=== PATIENT | female | born 1940 | race Caucasian/White ===

== ENCOUNTER 2018-05-23 19:21 | Observation (INO) | payer OTHER ==
[2018-05-23] MEDS ORDERED: Sodium Chloride 0.9% 1,000 ML IV STA (19:47)
[2018-05-23] MEDS ORDERED: Morphine 4 mg/ml ISec IVP STA (19:47)
[2018-05-23 20:31] LABS: URINE BILIRUBIN NEGATIVE (NEGATIVE); URINE BLOOD MODERATE (NEGATIVE); URINE GLUCOSE (UA) NEGATIVE (NEGATIVE); URINE LEUKOCYTE ESTERASE SMALL Leu/uL (NEGATIVE); URINE PROTEIN NEGATIVE mg/dL (<30 mg/dL); URINE UROBILINOGEN 0.2 E.U./dL (<1 E.U./dL); VENOUS BLOOD GAS BASE EXCESS 2.8 mmol/L (0.0-2.0); VENOUS BLOOD GAS PO2 52 mm/Hg (30-55); VENOUS BLOOD PH 7.36 (7.32-7.43)
[2018-05-23 20:32] LABS: URINE APPEARANCE SL CLOUDY (CLEAR); URINE COLOR YELLOW (YELLOW)
[2018-05-23 20:46] LABS: URINE BACTERIA FEW (NEG)
[2018-05-23 20:51] LABS: BASO # 0.03 K/mm3 (0.0-2.0); BASO % 0.2 % (0.0-3.0); EOS # 0.1 (0.0-0.7); EOS % 0.6 % (1.5-5.0); GRAN # 11.84 (1.4-6.5); GRAN % 73.9 % (50.0-68.0); LYMPH # 2.4 (1.2-3.4); LYMPH % 15.2 % (22.0-35.0); MEAN CELL VOLUME 89.6 fl (80.0-105.0); MEAN CORPUSCULAR HEMOGLOBIN 30.2 pg (25.0-35.0); MEAN CORPUSCULAR HGB CONC 33.7 g/dl (31.0-37.0); MEAN PLATELET VOLUME 11.4 fl (7.0-11.0); MONO # 1.6 (0.1-0.6); MONO % 10.1 % (1.0-6.0); RBC 4.63 10^6/uL (3.5-6.1)
[2018-05-23] MEDS ORDERED: HYDROmorphone 0.5 mg/0.5 ml ISec IVP STA (21:18)
[2018-05-23] MEDS ORDERED: HYDROmorphone 0.5 mg/0.5 ml ISec ONE (21:28)
[2018-05-23 22:17] LABS: ALB/GLOB RATIO 1.2 (1.1-1.8); ALBUMIN 3.6 g/dL (3.0-4.8); ALT/SGPT 48 U/L (7-56); AMYLASE 66 U/L (35-125); AST/SGOT 113 U/L (14-36); BLOOD UREA NITROGEN 18 mg/dL (7-21); CALCIUM 7.8 mg/dL (8.4-10.5); GFR AFRICAN-AMERICAN > 60; GFR NON-AFRICAN AMERICAN > 60; LIPASE 233 U/L (23-300)
[2018-05-23 22:28] LABS: TROPONIN I < 0.01 ng/mL
[2018-05-23 22:31] LABS: INR 1.03 (0.93-1.08); PARTIAL THROMBOPLASTIN TIME 23.8 Seconds (25.1-36.5); PROTHROMBIN TIME 11.7 SECONDS (9.4-12.5)
--- NOTE | 2018-05-24 01:01 | ED PDOC ---
Arrival/HPI - General Chief Complaint: Abdominal Pain Time Seen by Provider: 05/23/18 19:41 - History of Present Illness Narrative History of Present Illness (Text): 05/24/18 00:58 77 year old female, with no significant past medical history, presents to the emergency department complaining of general abdominal pain. Patient denies any fevers, chills, chest pain, shortness of breath, nausea, vomiting, diarrhea, back pain, neck pain, urinary symptoms, headache, dizziness, or any other complaint. Time/Duration: Prior to Arrival Symptom Onset: Sudden Symptom Course: Unchanged Activities at Onset: Light Context: Home Past Medical History - Provider Review Nursing Documentation Reviewed: Yes - Tetanus Immunization Tetanus Immunization: Unknown - Cardiac Hx Cardiac Disorders: Yes Hx Hypertension: Yes - Pulmonary Hx Respiratory Disorders: Yes Hx Asthma: Yes - Neurological Hx Neurological Disorder: No - HEENT Hx HEENT Disorder: No - Renal Hx Renal Disorder: No - Endocrine/Metabolic Hx Endocrine Disorders: No - Hematological/Oncological Hx Blood Disorders: No - Integumentary Hx Dermatological Disorder: No - Musculoskeletal/Rheumatological Hx Musculoskeletal Disorders: Yes Hx Arthritis: Yes - Gastrointestinal Hx Gastrointestinal Disorders: Yes Hx Constipation: Yes - Genitourinary/Gynecological Hx Genitourinary Disorders: No - Psychiatric Hx Psychophysiologic Disorder: No Hx Substance Use: No - Surgical History Other/Comment: HERNIA REPAIR - Anesthesia Hx Anesthesia Reactions: No Hx Malignant Hyperthermia: No - Suicidal Assessment Feels Threatened In Home Enviroment: No Family/Social History - Physician Review Nursing Documentation Reviewed: Yes Family/Social History: Unknown Family HX Smoking Status: Never Smoked Hx Alcohol Use: No Hx Substance Use: No Hx Substance Use Treatment: No Allergies/Home Meds Allergies/Adverse Reactions: Allergies ibuprofen Allergy (Verified 05/23/18 19:24) ITCHING Penicillins Allergy (Verified 05/23/18 19:24) ANAPHYLAXIS Home Medications: Home Meds Medication Instructions Recorded Confirmed Unobtainable 05/23/18 05/23/18 Review of Systems - Physician Review All systems were reviewed & negative as marked: Yes - Review of Systems Constitutional: Normal Eyes: Normal ENT: Normal Respiratory: Normal. absent: SOB, Cough Cardiovascular: Normal. absent: Chest Pain Gastrointestinal: Abdominal Pain. absent: Diarrhea, Nausea, Vomiting Genitourinary Female: Normal. absent: Dysuria, Frequency Musculoskeletal: Normal. absent: Back Pain, Neck Pain Skin: Normal. absent: Rash Neurological: Normal. absent: Headache, Dizziness Endocrine: Normal Hemo/Lymphatic: Normal Psychiatric: Normal Physical Exam Vital Signs Reviewed: Yes Vital Signs Temp Pulse Resp BP Pulse Ox 05/24/18 04:13 89 16 143/51 L 05/24/18 03:21 89 16 143/51 L 05/24/18 01:21 98.1 F 83 17 153/56 H 05/23/18 23:21 95 H 16 156/58 H 05/23/18 21:21 88 18 142/60 05/23/18 19:25 98.2 F 103 H 17 139/77 96 Temperature: Afebrile Blood Pressure: Normal Pulse: Tachycardic Respiratory Rate: Normal Appearance: Positive for: Well-Appearing, Non-Toxic, Comfortable Pain Distress: None Mental Status: Positive for: Alert and Oriented X 3 - Systems Exam Head: Present: Atraumatic, Normocephalic Pupils: Present: PERRL Extroacular Muscles: Present: EOMI Conjunctiva: Present: Normal Mouth: Present: Moist Mucous Membranes Neck: Present: Normal Range of Motion. No: Meningeal Signs, MIDLINE TENDERNESS , Paraspinal Tenderness Respiratory/Chest: Present: Clear to Auscultation, Good Air Exchange. No: Respiratory Distress, Accessory Muscle Use Cardiovascular: Present: Regular Rate and Rhythm, Normal S1, S2. No: Murmurs Abdomen: Present: Tenderness (epigastric tenderness). No: Distention, Peritoneal Signs Back: Present: Normal Inspection. No: CVA Tenderness, Midline Tenderness, Paraspinal Tenderness Upper Extremity: Present: Normal Inspection. No: Cyanosis, Edema Lower Extremity: Present: Normal Inspection. No: Edema, CALF TENDERNESS Neurological: Present: GCS=15, CN II-XII Intact, Speech Normal Skin: Present: Warm, Dry, Normal Color. No: Rashes Psychiatric: Present: Alert, Oriented x 3, Normal Insight, Normal Concentration Medical Decision Making ED Course and Treatment: 05/24/18 01:01 Impression: 77 year old female presents to the emergency department complaining of general abdominal juarez. Plan: --Abd Pelvis CT -- EKG -- Chest X-ray -- Urine Culture -- Dilaudid -- Morphone -- Sodium Chloride -- Zofran -- Reassess and disposition Progress Notes: - Lab Interpretations Lab Results: 05/23/18 20:20 05/23/18 21:57 Lab Results 05/23/18 21:57: Sodium 138, Chloride 103, Potassium 4.1, Carbon Dioxide 25, Anion Gap 15, BUN 18, Creatinine 0.5 L, Est GFR ( Amer) > 60, Est GFR ( Non-Af Amer) > 60, Random Glucose 131 H, Calcium 7.8 L, Total Bilirubin 1.1, AST 113 H, ALT 48, Alkaline Phosphatase 78, Lactate Dehydrogenase 643, Total Creatine Kinase 45, Troponin I < 0.01, Total Protein 6.5, Albumin 3.6, Globulin 2.9, Albumin/Globulin Ratio 1.2, Amylase 66, Lipase 233 05/23/18 21:57: PT 11.7, INR 1.03, APTT 23.8 L 05/23/18 20:20: pO2 52, VBG pH 7.36, VBG pCO2 52.0, VBG HCO3 29.4 H, VBG Total CO2 31.0 H, VBG O2 Sat (Calc) 89.4 H, VBG Base Excess 2.8 H, VBG Potassium 5.3 H , Sodium 134.0, Chloride 99.0, Glucose 133 H, Lactate 1.3, FiO2 21.0, Venous Blood Potassium 5.3 H 05/23/18 20:20: Urine Color Yellow, Urine Appearance Sl cloudy, Urine pH 6.0, Ur Specific [place] 1.015, Urine Protein Negative, Urine Glucose (UA) Negative, Urine Ketones Negative, Urine Blood Moderate H, Urine Nitrate Negative, Urine Bilirubin Negative, Urine Urobilinogen 0.2, Ur Leukocyte Esterase Small H, Urine RBC 10 - 15, Urine WBC 5 - 10, Ur Epithelial Cells 3 - 4, Urine Bacteria Few 05/23/18 20:20: WBC 16.0 H, RBC 4.63, Hgb 14.0, Hct 41.5, MCV 89.6, MCH 30.2, MCHC 33.7, RDW 14.0, Plt Count 290, MPV 11.4 H, Gran % 73.9 H, Lymph % (Auto) 15.2 L, Grant % (Auto) 10.1 H, Eos % (Auto) 0.6 L, Baso % (Auto) 0.2, Gran # 11.84 H, Lymph # (Auto) 2.4, Grant # (Auto) 1.6 H, Eos # (Auto) 0.1, Baso # (Auto ) 0.03 - RAD Interpretation Radiology Orders: 05/23/18 19:47 CHEST PORTABLE [RAD] Stat 05/23/18 21:45 ABD & PELVIS W/O PO OR IV CONT [CT] Stat - EKG Interpretation EKG Interpretation (Text): 05/24/18 04:34 sinus rythum rate [address] s changes - Medication Orders Current Medication Orders: Acetaminophen (Tylenol 325mg Tab) 650 mg PO Q4H PRN PRN Reason: Fever >100.5 F Sodium Chloride (Sodium Chloride 0.9%) 1,000 mls @ 100 mls/hr IV .Q10H STA Stop: 05/24/18 05:46 Last Admin: 05/23/18 20:30 Dose: 100 mls/hr eMAR Start Stop Document 05/23/18 20:30 YODIT (Rec: 05/23/18 20:30 YODIT [id number]) Intravenous Solution Start Date 05/23/18 Start Time 20:30 Sodium Chloride (Sodium Chloride 0.9%) 1,000 mls @ 80 mls/hr IV .[id number] STA Stop: 05/24/18 15:46 Last Admin: 05/24/18 03:58 Dose: 80 mls/hr eMAR Start Stop Document 05/24/18 03:58 YODIT (Rec: 05/24/18 03:59 YODIT [id number]) Intravenous Solution Start Date 05/24/18 Start Time 03:58 Morphine Sulfate (Morphine) 2 mg IVP Q4H PRN PRN Reason: Pain, moderate (4-7) Ondansetron HCl (Zofran Inj) 4 mg IVP Q6H PRN PRN Reason: Nausea/Vomiting Discontinued Medications Hydromorphone HCl (Dilaudid) 1 mg IVP STAT STA Stop: 05/23/18 21:19 Last Admin: 05/23/18 21:27 Dose: 1 mg MAR Pain Assessment Document 05/23/18 21:27 YODIT (Rec: 05/23/18 21:41 YODIT [id number]) Pain Reassessment Is this a pain reassessment? No IVP Administration Document 05/23/18 21:27 YODIT (Rec: 05/23/18 21:41 YODIT [id number]) Charges for Administration # of IVP Administrations 1 Morphine Sulfate (Morphine) 2 mg IVP STAT STA Stop: 05/23/18 19:48 Last Admin: 05/23/18 20:29 Dose: 2 mg MAR Pain Assessment Document 05/23/18 20:29 YODIT (Rec: 05/23/18 20:30 YODIT [id number]) Pain Reassessment Is this a pain reassessment? No IVP Administration Document 05/23/18 20:29 YODIT (Rec: 05/23/18 20:30 YODIT [id number]) Charges for Administration # of IVP Administrations 1 Ondansetron HCl (Zofran Inj) 4 mg IVP STAT STA Stop: 05/23/18 19:48 Last Admin: 05/23/18 20:30 Dose: 4 mg IVP Administration Document 05/23/18 20:30 YODIT (Rec: 05/23/18 20:30 YODIT [id number]) Charges for Administration # of IVP Administrations 1 Ondansetron HCl (Zofran Inj) 4 mg IVP STAT STA Stop: 05/23/18 21:46 Last Admin: 05/23/18 21:48 Dose: 4 mg IVP Administration Document 05/23/18 21:48 YODIT (Rec: 05/23/18 21:48 YODIT [id number]) Charges for Administration # of IVP Administrations 1 - Scribe Statement The provider has reviewed the documentation as recorded by the Saludibenedina Meza All medical record entries made by the Scribenedina were at my direction and personally dictated by me. I have reviewed the chart and agree that the record accurately reflects my personal performance of the history, physical exam, medical decision making, and the department course for this patient. I have also personally directed, reviewed, and agree with the discharge instructions and disposition. Disposition/Present on Arrival - Present on Arrival History of DVT/PE: No History of Uncontrolled Diabetes: No Urinary Catheter: No History of Decub. Ulcer: No History Surgical Site Infection Following: None - Disposition
[2018-05-24] MEDS ORDERED: Sodium Chloride 0.9% 1,000 ML IV STA (03:17)
[2018-05-24] MEDS ORDERED: Morphine 2 mg/ml ISec IVP PRN (03:19)
[2018-05-24 05:41] VITALS: RESP 20; BMI 28.7
--- NOTE | 2018-05-24 05:54 | CP.PCM.CON ---
Addendum entered and electronically signed by Michelle Vaca DO 05/24/18 07:17: Recommend GI consult FU FOB started PPI Pt seen/evaluated at 0530 and again at 0700 To be evaluated by attending later today Nola, PGY-1 Original Note: <Michelle Vaca - Last Filed: 05/24/18 05:58> History of Present Illness - History of Present Illness History of Present Illness: General surgery consult note for Dr. Duong-Michelle Vaca, PGY-1 Pt S & E at bedside at 77F w/PMH sig for open ventral hernia repair and constipation consulted for abdominal pain x 2 days. Pt reports sudden onset of upper quadrant abdominal pain that radiates diffusely, severe, crampy, intermittent 2 days prior to evaluation. Pt thought it was related to constipation, however pain was not alleviated after moving her bowels. Pain alleviated by pain medication. No inciting or aggravating factors identified. Admits to one episode of emesis ( nbnb, food stuff) in the ED, nausea, chronic urinary incontinence, numbness/ tingling of extremities (chronic). Denies F[place], CP, recent URI symptoms, SOB, diarrhea, other complaints. In ED- CT abdomen with Leukocytosis 16.0. Afebrile. PMH: HTN, bladder problems, Asthma,lumbar radiculopathy, arthritis, constipation , peripheral neuropathy, obesity PSH: open ventral hernia repair, cholecystectomy, appendecectomy, hysterectomy All: Seasonal, PCN, Ibuprofen SH: Denies ETOH, tobacco, illicit drug use or history of PMD: Perveen Review of Systems - Review of Systems All systems: reviewed and no additional remarkable complaints except - Constitutional Constitutional: absent: Chills, Fever, Headache, Weakness - EENT Eyes: absent: Change in Vision Nose/Mouth/Throat: absent: Sore Throat - Cardiovascular Cardiovascular: absent: Chest Pain, Palpitations - Respiratory Respiratory: absent: Cough - Gastrointestinal Gastrointestinal: Abdominal Pain, Constipation (chronic), Cramping, Nausea, Vomiting. absent: Change in Bowel Habits, Change in Stool Character, Diarrhea, Hematemesis, Hematochezia, Melena - Genitourinary Genitourinary: Urinary Incontinence. absent: Change in Urinary Stream - Musculoskeletal Musculoskeletal: Numbness (chronic), Tingling (chronic) - Integumentary Integumentary: absent: Rash - Neurological Neurological: absent: Weakness - Psychiatric Psychiatric: absent: Change in Appetite Past Patient History - Tetanus Immunizations Tetanus Immunization: Unknown - Past Social History Smoking Status: Never Smoked - CARDIAC Hx Cardiac Disorders: Yes Hx Hypertension: Yes - PULMONARY Hx Respiratory Disorders: Yes Hx Asthma: Yes - NEUROLOGICAL Hx Neurological Disorder: No - HEENT Hx HEENT Problems: No - RENAL Hx Chronic Kidney Disease: No - ENDOCRINE/METABOLIC Hx Endocrine Disorders: No - HEMATOLOGICAL/ONCOLOGICAL Hx Blood Disorders: No - INTEGUMENTARY Hx Dermatological Problems: No - MUSCULOSKELETAL/RHEUMATOLOGICAL Hx Falls: Yes - GASTROINTESTINAL Hx Gastrointestinal Disorders: Yes Hx Constipation: Yes - GENITOURINARY/GYNECOLOGICAL Hx Genitourinary Disorders: No - PSYCHIATRIC Hx Psychophysiologic Disorder: No Hx Substance Use: No - SURGICAL HISTORY Other/Comment: HERNIA REPAIR - ANESTHESIA Hx Anesthesia Reactions: No Hx Malignant Hyperthermia: No Meds Allergies/Adverse Reactions: Allergies Allergy/AdvReac Type Severity Reaction Status Date / Time ibuprofen Allergy ITCHING Verified 05/23/18 19:24 Penicillins Allergy ANAPHYLAXIS Verified 05/23/18 19:24 - Medications Medications: Current Medications Acetaminophen (Tylenol 325mg Tab) 650 mg PO Q4H PRN PRN Reason: Fever >100.5 F Sodium Chloride (Sodium Chloride 0.9%) 1,000 mls @ 80 mls/hr IV .[id number] STA Stop: 05/24/18 15:46 Last Admin: 05/24/18 03:58 Dose: 80 mls/hr Morphine Sulfate (Morphine) 2 mg IVP Q4H PRN PRN Reason: Pain, moderate (4-7) Ondansetron HCl (Zofran Inj) 4 mg IVP Q6H PRN PRN Reason: Nausea/Vomiting Physical Exam - Constitutional Appears: Non-toxic, No Acute Distress - Head Exam Head Exam: ATRAUMATIC, NORMAL INSPECTION, NORMOCEPHALIC - Eye Exam Eye Exam: EOMI, Normal appearance - ENT Exam ENT Exam: Mucous Membranes Moist, Normal Exam - Neck Exam Neck exam: Positive for: Full Rom, Normal Inspection - Respiratory Exam Respiratory Exam: Clear to Auscultation Bilateral, NORMAL BREATHING PATTERN. absent: Rales, Rhonchi, Wheezes, Respiratory Distress - Cardiovascular Exam Cardiovascular Exam: REGULAR RHYTHM, +S1, +S2 - GI/Abdominal Exam GI & Abdominal Exam: Normal Bowel Sounds, Soft, Tenderness (minimal, RUQ, LUQ, epigastric). absent: Diminished Bowel Sounds, Distended, Firm, Guarding, Hernia , Rigid - Extremities Exam Extremities exam: Positive for: normal inspection. Negative for: tenderness - Neurological Exam Neurological exam: Alert, CN II-XII Intact, Oriented x3 - Psychiatric Exam Psychiatric exam: Normal Affect, Normal Mood - Skin Skin Exam: Dry, Intact, Normal Color, Warm Additional comments: Well healed lower abdomen midline scar [facility] lower abdomen horizontal scar small linear well healed scars in epigastrium, LUQ Results - Vital Signs Recent Vital Signs: Last Vital Signs Temp 98.1 F 05/24/18 01:21 Pulse 87 05/24/18 05:16 Resp 20 05/24/18 05:16 BP 143/51 L 05/24/18 04:13 Pulse Ox 96 05/23/18 19:25 - Labs Result Diagrams: 05/23/18 20:20 05/23/18 21:57 Assessment & Plan - Assessment and Plan (Free Text) Assessment: 77F w/abdominal pain Plan: FU CT ab report Pain control Anti-emetic Bowel regimen Monitor Further recs pending attending evaluation Will DW attending Noal, PGY-1 - Date & Time Date: 05/24/18 Time: 05:52 <Rusty Duong - Last Filed: 05/25/18 11:24> Results - Vital Signs Recent Vital Signs: Last Vital Signs Temp 98.2 F 05/24/18 06:00 Pulse 82 05/24/18 06:00 Resp 20 05/24/18 06:00 BP 148/68 05/24/18 06:00 Pulse Ox 95 05/24/18 06:00 - Labs Result Diagrams: 05/24/18 08:25 05/24/18 08:25 Labs: Laboratory Results - last 24 hr 05/24/18 08:00 Procalcitonin 0.06 L Assessment & Plan - Assessment and Plan (Free Text) Assessment: Dx Abd Pain R/O Ischemic Bowel/Constipation Labs WBC 16K dropping to 14K/Lactate Neg/Unable to obtain stool hemoccult Pt wishes to leave AMA before further testing(Duplex sono) Recommend pt return if symptoms return This consult done under my direct supervision Darryl Duong MD FACS
[2018-05-24 06:45] VITALS: BP 148/68
[2018-05-24 07:43] VITALS: PULSE 82; TEMP 98.2; O2SAT 95
[2018-05-24 08:36] LABS: BASO # 0.02 K/mm3 (0.0-2.0); BASO % 0.1 % (0.0-3.0); EOS % 0.2 % (1.5-5.0); GRAN # 11.55 (1.4-6.5); GRAN % 79.3 % (50.0-68.0); HEMOGLOBIN 12.2 g/dL (12.0-16.0); LYMPH # 1.7 (1.2-3.4); LYMPH % 11.8 % (22.0-35.0); MEAN CELL VOLUME 90.1 fl (80.0-105.0); MEAN CORPUSCULAR HEMOGLOBIN 29.5 pg (25.0-35.0); MEAN CORPUSCULAR HGB CONC 32.8 g/dl (31.0-37.0); MEAN PLATELET VOLUME 10.4 fl (7.0-11.0); MONO # 1.3 (0.1-0.6); MONO % 8.6 % (1.0-6.0); RBC 4.13 10^6/uL (3.5-6.1); RED CELL DISTRIBUTION WIDTH 13.9 % (11.5-14.5); WHITE BLOOD COUNT 14.6 10^3/ul (4.5-11.0)
[2018-05-24 08:58] LABS: ALB/GLOB RATIO 1.4 (1.1-1.8); ALT/SGPT 162 U/L (7-56); AMYLASE 66 U/L (35-125); AST/SGOT 200 U/L (14-36); BLOOD UREA NITROGEN 14 mg/dL (7-21); CALCIUM 8.4 mg/dL (8.4-10.5); GFR AFRICAN-AMERICAN > 60; GFR NON-AFRICAN AMERICAN > 60; LIPASE 84 U/L (23-300)
[2018-05-24] MEDS ORDERED: POLYETHYLENE GLYCOL 3350 17 GM/Dose PACKET PO SCH (10:00)
--- NOTE | 2018-05-24 11:27 | CP.PCM.CON ---
<Praveen Martinez - Last Filed: 05/24/18 11:28> History of Present Illness - History of Present Illness History of Present Illness: PGY5 GI Fellow Consult Note - LATE ENTRY Patient is a 77yo female with PMHx significant for asthma, DJD who presented to the hospital with complaint of abdominal pain. She states that for the last two days she has suffered with new onset constipation. With her difficulty passing stool, she developed diffuse abdominal cramping pain. She did not use any laxative therapy and tried to improve defecation via diet but was unsuccessful. She was able to pass stool this morning and has since felt well. Currently, she denies any complaints. She denies any weight loss, nausea, vomiting, rectal bleeding. She is requesting discharge at this time. 12 system ROS performed and negative except where stated. PMHx: See HPI PSHx: Ventral hernia repair, bowel resection as complication of repair; cholecystectomy, appendectomy FHx: Discussed with patient and she denies any significant family history Social: Denies tobacco, EtOH or illicit drug use Endo: No prior documented exams Past Patient History - Tetanus Immunizations Tetanus Immunization: Unknown - Past Social History Smoking Status: Never Smoked - CARDIAC Hx Cardiac Disorders: Yes Hx Hypertension: Yes - PULMONARY Hx Respiratory Disorders: Yes Hx Asthma: Yes - NEUROLOGICAL Hx Neurological Disorder: No - HEENT Hx HEENT Problems: No - RENAL Hx Chronic Kidney Disease: No - ENDOCRINE/METABOLIC Hx Endocrine Disorders: No - HEMATOLOGICAL/ONCOLOGICAL Hx Blood Disorders: No - INTEGUMENTARY Hx Dermatological Problems: No - MUSCULOSKELETAL/RHEUMATOLOGICAL Hx Falls: Yes - GASTROINTESTINAL Hx Gastrointestinal Disorders: Yes Hx Constipation: Yes - GENITOURINARY/GYNECOLOGICAL Hx Genitourinary Disorders: No - PSYCHIATRIC Hx Psychophysiologic Disorder: No Hx Substance Use: No - SURGICAL HISTORY Other/Comment: HERNIA REPAIR - ANESTHESIA Hx Anesthesia Reactions: No Hx Malignant Hyperthermia: No Meds Allergies/Adverse Reactions: Allergies Allergy/AdvReac Type Severity Reaction Status Date / Time ibuprofen Allergy ITCHING Verified 05/23/18 19:24 Penicillins Allergy ANAPHYLAXIS Verified 05/23/18 19:24 Physical Exam - Constitutional Appears: Non-toxic, No Acute Distress - Eye Exam Eye Exam: EOMI, PERRL - ENT Exam ENT Exam: Mucous Membranes Moist - Respiratory Exam Respiratory Exam: Clear to Auscultation Bilateral. absent: Rales, Rhonchi, Wheezes - Cardiovascular Exam Cardiovascular Exam: RRR, +S1, +S2 - GI/Abdominal Exam GI & Abdominal Exam: Normal Bowel Sounds, Soft. absent: Distended, Firm, Guarding, Mass, Organomegaly, Rigid, Tenderness Additional comments: healed midline surgical scar - Extremities Exam Extremities exam: Positive for: normal inspection. Negative for: pedal edema - Neurological Exam Neurological exam: Alert, Oriented x3 - Psychiatric Exam Psychiatric exam: Normal Affect, Normal Mood - Skin Skin Exam: Dry, Warm Results - Vital Signs Recent Vital Signs: Last Vital Signs Temp 98.2 F 05/24/18 06:00 Pulse 82 05/24/18 06:00 Resp 20 05/24/18 06:00 BP 148/68 05/24/18 06:00 Pulse Ox 95 05/24/18 06:00 - Labs Result Diagrams: 05/24/18 08:25 05/24/18 08:25 Labs: Laboratory Results - last 24 hr 05/24/18 05/24/18 05/24/18 08:25 08:25 08:25 WBC 14.6 H RBC 4.13 Hgb 12.2 Hct 37.2 MCV 90.1 MCH 29.5 MCHC 32.8 RDW 13.9 Plt Count 258 MPV 10.4 Gran % 79.3 H Lymph % (Auto) 11.8 L [place] % (Auto) 8.6 H Eos % (Auto) 0.2 L Baso % (Auto) 0.1 Gran # 11.55 H Lymph # (Auto) 1.7 [place] # (Auto) 1.3 H Eos # (Auto) 0.0 Baso # (Auto) 0.02 Sodium 138 Potassium 4.2 Chloride 103 Carbon Dioxide 26 Anion Gap 14 BUN 14 Creatinine 0.5 L Est GFR ( Amer) > 60 Est GFR (Non-Af Amer) > 60 Random Glucose 103 Lactic Acid 0.9 Calcium 8.4 Total Bilirubin 0.9 AST 200 H D ALT 162 H Alkaline Phosphatase 126 D Total Protein 6.7 Albumin 4.0 Globulin 2.8 Albumin/Globulin Ratio 1.4 Amylase 66 Lipase 84 Assessment & Plan - Assessment and Plan (Free Text) Assessment: Patient is a 77yo female with PMHx significant for asthma, DJD who presented to the hospital with complaint of abdominal pain. -Abdominal pain, resolved -Constipation Plan: -Diet as tolerated -Recommend daily bowel regimen - Miralax 17g PO QD and titrate dose to 1BM/day -Presently asymptomatic -OK for D/C from GI standpoint as symptoms have resolved - Date & Time Date: 05/24/18 Time: 07:10 <Wes Cote - Last Filed: 05/25/18 07:50> Results - Vital Signs Recent Vital Signs: Last Vital Signs Temp 98.2 F 05/24/18 06:00 Pulse 82 05/24/18 06:00 Resp 20 05/24/18 06:00 BP 148/68 05/24/18 06:00 Pulse Ox 95 05/24/18 06:00 - Labs Result Diagrams: 05/24/18 08:25 05/24/18 08:25 Labs: Laboratory Results - last 24 hr 05/24/18 05/24/18 05/24/18 08:00 08:25 08:25 WBC 14.6 H RBC 4.13 Hgb 12.2 Hct 37.2 MCV 90.1 MCH 29.5 MCHC 32.8 RDW 13.9 Plt Count 258 MPV 10.4 Gran % 79.3 H Lymph % (Auto) 11.8 L [place] % (Auto) 8.6 H Eos % (Auto) 0.2 L Baso % (Auto) 0.1 Gran # 11.55 H Lymph # (Auto) 1.7 [place] # (Auto) 1.3 H Eos # (Auto) 0.0 Baso # (Auto) 0.02 Sodium 138 Potassium 4.2 Chloride 103 Carbon Dioxide 26 Anion Gap 14 BUN 14 Creatinine 0.5 L Est GFR ( Amer) > 60 Est GFR (Non-Af Amer) > 60 Random Glucose 103 Lactic Acid Calcium 8.4 Total Bilirubin 0.9 AST 200 H D ALT 162 H Alkaline Phosphatase 126 D Total Protein 6.7 Albumin 4.0 Globulin 2.8 Albumin/Globulin Ratio 1.4 Amylase 66 Lipase 84 Procalcitonin 0.06 L 05/24/18 08:25 WBC RBC Hgb Hct MCV MCH MCHC RDW Plt Count MPV Gran % Lymph % (Auto) [place] % (Auto) Eos % (Auto) Baso % (Auto) Gran # Lymph # (Auto) [place] # (Auto) Eos # (Auto) Baso # (Auto) Sodium Potassium Chloride Carbon Dioxide Anion Gap BUN Creatinine Est GFR ( Amer) Est GFR (Non-Af Amer) Random Glucose Lactic Acid 0.9 Calcium Total Bilirubin AST ALT Alkaline Phosphatase Total Protein Albumin Globulin Albumin/Globulin Ratio Amylase Lipase Procalcitonin Attending/Attestation - Attestation I have personally seen and examined this patient.: Yes I have fully participated in the care of the patient.: Yes I have reviewed all pertinent clinical information: Yes Notes (Text): 05/25/18 07:49 77 year old female who is admitted with abdominal pain 2/2 constipation, now resolved. Ok for discharge. Start miralax as outpatient.
--- NOTE | 2018-05-24 13:45 | CARD ---
APPROVED REPORT EKG Measurement Heart [id number] NM [id number] [id number] <Conclusion> Sinus rhythm with premature atrial complexes Possible Anterior infarct, age undetermined Abnormal ECG
--- NOTE | 2018-05-24 16:15 | RAD ---
HISTORY: abd pain COMPARISON: Comparison chest 01/19/2014 FINDINGS: LUNGS: Minor bibasilar atelectasis PLEURA: No significant pleural effusion identified, no pneumothorax apparent. CARDIOVASCULAR: Cardiomegaly OSSEOUS STRUCTURES: Mild multilevel degenerative spondylosis of the thoracic spine VISUALIZED UPPER ABDOMEN: Normal. OTHER FINDINGS: None. IMPRESSION: Minor bibasilar atelectasis
--- NOTE | 2018-05-24 18:28 | CT ---
PROCEDURE: CT Abdomen and Pelvis without intravenous contrast HISTORY: abd pain COMPARISON: None. TECHNIQUE: Technique. Contrast dose: Radiation dose: Total exam DLP = 705.64mGy-cm. This CT exam was performed using one or more of the following dose reduction techniques: Automated exposure control, adjustment of the mA and/or kV according to patient size, and/or use of iterative reconstruction technique. FINDINGS: LOWER THORAX: Mild atelectasis and or scarring right middle lobe. . Heart is enlarged. Small hiatal hernia. LIVER: Unremarkable. No gross lesion or ductal dilatation. GALLBLADDER AND BILE DUCTS: Cholecystctomy. PANCREAS: Unremarkable. No gross lesion or ductal dilatation. SPLEEN: Spleen exhibits normal size ADRENALS: Unremarkable. No mass. KIDNEYS AND URETERS: Unremarkable.Small 3mm nonobstructing stone left kidney. Small bilateral parapelvic cysts No hydronephrosis. No solid mass. VASCULATURE: There is mild dilatation of the infrarenal abdominal aorta which measures approximately 2.8 cm in greatest dimension. BOWEL: Anastomotic changes are seen within the small bowel in 2 locations 1 in the left the other in right aspect of the abdomen however former slightly more patulous than the latter. . Right abdomen. No evidence of acute mechanical small bowel obstruction,, the left-side of left-sided anastomosis is at slightly patulous in appearance. There is a large amount of stool seen in the cecum and at ascending colon and to a lesser degree transverse colon consistent with mild fecal retention/ constipation. No with a 2nd. No gross mural thickening. Diverticulosis APPENDIX: No evidence of acute appendicitis. PERITONEUM: Unremarkable. No free fluid. No free air. S/P herniorrhaphy Bilateral fat containing inguinal hernias LYMPH NODES: Unremarkable. No enlarged lymph nodes. BLADDER: Unremarkable. REPRODUCTIVE: Unremarkable. BONES: No acute fracture. OTHER FINDINGS: None. IMPRESSION: Small infrarenal abdominal aortic aneurysm. Postoperative anastomotic changes of the small bowel with mild patulous appearance of both of these anastomotic sites left side larger than right. Status post anterior abdominal wall hernia surgery. Findings consistent with constipation. Small fat containing bilateral inguinal hernias.
--- NOTE | 2018-05-25 00:50 | HP ---
DATE OF EXAM: 05/24/2018 CHIEF COMPLAINT AND HISTORY OF PRESENT ILLNESS: This is a 77-year-old female who is coming in to the hospital with complaints of abdominal pain and nausea. The patient says that she started having abdominal pain. It was generalized. She says it was severe. It was difficult for her to quantify the abdominal pain. She did have nausea. She had no diarrhea. No bleeding. No fevers or chills. No back pain. She states it was mostly crampy. The abdominal pain has been going on for the past 2 days. She says that she took pain medications, but it did not relieve her pain. Nothing made the pain better or worse. All other review of symptoms are within normal limits except that was mentioned. She does have a history of ventral hernia repair in the past. ALLERGIES: TO PENICILLIN, IBUPROFEN. PAST MEDICAL HISTORY: Hypertension, asthma, back pain, arthritis, constipation, neuropathy. PAST SURGICAL HISTORY: Hysterectomy, appendectomy, cholecystectomy, ventral hernia repair. SOCIAL HISTORY: She denies smoking, drinking or drugs. FAMILY HISTORY: Noncontributory. PHYSICAL EXAMINATION: VITAL SIGNS: Temperature is 98.1, pulse of 83, blood pressure is 153/56, respirations 17, O2 saturation is 99%. Height is 5 feet 1. Weight is 152 pounds. BMI is 28.7. GENERAL: The patient lying in bed, uncomfortable, and in no acute distress. HEENT: Atraumatic and normocephalic. Anicteric sclerae. Moist mucosa. [place] conjunctivae. No oral lesions. NECK: No JVD, anterior and posterior adenopathy, thyromegaly, or bruits. CARDIOVASCULAR: S1 and S2 regular. No murmur, rubs, or gallop. LUNGS: Clear to auscultation bilaterally. No wheezes, rales, or rhonchi. ABDOMEN: Bowel sounds are positive. Soft, nontender and nondistended. No hepatosplenomegaly. No rebound and no guarding EXTREMITIES: No cyanosis, clubbing, or edema. NEUROLOGIC: No facial asymmetry. Tongue is midline. No uvula deviation. Power is 5/5 upper extremity and lower extremity. Sensation intact in upper extremity and lower extremity. PSYCHIATRIC: She is awake, alert and oriented x3. No anxiety or depression. She has normal affect. GENITOURINARY: No CVA tenderness. VASCULAR: 2+ pulses in the carotid pulses and pedal pulses. SKIN: No erythema or nodules. SPINE: Shows normal curvature. LABORATORY DATA: White count of 16, repeat white count of 14.6. INR is 1.03. The patient has a chemistry that shows potassium is 4.1. The procalcitonin is 0.06. She has an alk phos of 78. AST is 113, ALT is 48. Urine shows ketones are negative, blood is moderate, esterase is small. ASSESSMENT: 1. Abdominal pain. 2. Transaminitis. 3. Osteoarthritis. 4. . PLAN: The patient was admitted to the hospital. She was placed on pain medication with morphine. She was on IV fluids. She was given Zofran for nausea. Her abdominal pain has improved. The patient was seen by Dr. Duong, Surgical team. The patient had a chest x-ray that showed minor bibasilar atelectasis. The patient had an EKG that shows sinus rhythm with a heart rate of 80. The QTc is 426. CT of the abdomen and pelvis was done. The patient had a small infrarenal abdominal aortic aneurysm, status post anterior abdominal wall hernia surgery was seen. There were signs of constipation. The gallbladder and bile duct showed that she had a cholecystectomy. The patient wanted to sign out AMA. She says she is going to follow up with Dr. Andino. She was made aware of the risks and she signed AMA without proper clearance by Surgery. She was advised to wait for further evaluation by specialist before she was discharged home. She was advised that she may come back to the hospital at first thing if symptoms return or get worse. Chris Chaves MD
== END 2018-05-24 09:46 | disposition left against medical advice (07) ==
LOC: ED 19:21 → ERH 05-24 03:16 → 5RSO 05-24 04:51
PROVIDERS: ADMIT Internal Medicine; ATTEND Internal Medicine
DX: K59.00 Constipation, unspecified (principal); R10.9 Unspecified abdominal pain; I10 Essential (primary) hypertension; J45.909 Unspecified asthma, uncomplicated; M19.90 Unspecified osteoarthritis, unspecified site; D72.829 Elevated white blood cell count, unspecified; R32 Unspecified urinary incontinence; Z90.710 Acquired absence of both cervix and uterus; Z90.49 Acquired absence of other specified parts of digestive tract; Z88.6 Allergy status to analgesic agent; Z88.0 Allergy status to penicillin; Z87.892 Personal history of anaphylaxis
CPT/HCPCS: 36415; 71045; 74176; 80053; 81001; 82150; 82550; 82803; 83605; 83615; 83690; 84145; 84484; 85025; 85610; 85730; 93005; 96374; 96375; 96376; 99284; G0378; J1170; J2270; J2405; J7030

== ENCOUNTER 2019-04-22 11:31 | Inpatient (IN) | payer MEDICAID, OTHER ==
[2019-04-22] MEDS ORDERED: Morphine 2 mg/ml ISec IVP STA (12:15)
--- NOTE | 2019-04-22 12:25 | ED PDOC ---
Arrival/HPI - General Chief Complaint: Abdominal Pain Time Seen by Provider: 04/22/19 11:57 Historian: Patient - History of Present Illness Narrative History of Present Illness (Text): 04/22/19 12:19 78 year old female, whose past medical history includes hypertension, asthma, back pain, arthritis, constipation, neuropathy, hysterectomy, appendectomy, cholecystectomy, and ventral hernia repair, presents to the emergency department complaining of abdominal pain that radiates across the back that woke her up approximately 10 hours ago. Patient reports she is making small amounts of stool and is possibly constipated. Patient denies any fever, chills, chest pain, shortness of breath, nausea, vomiting, diarrhea, urinary symptoms, neck pain, headache, dizziness, or any other complaints. Past Medical History - Provider Review Nursing Documentation Reviewed: Yes - Tetanus Immunization Tetanus Immunization: Unknown - Reproductive Menopause: Yes - Cardiac Hx Cardiac Disorders: Yes Hx Hypertension: Yes - Pulmonary Hx Respiratory Disorders: Yes Hx Asthma: Yes - Neurological Hx Neurological Disorder: No - HEENT Hx HEENT Disorder: No - Renal Hx Renal Disorder: No - Endocrine/Metabolic Hx Endocrine Disorders: No - Hematological/Oncological Hx Blood Disorders: No - Integumentary Hx Dermatological Disorder: No - Musculoskeletal/Rheumatological Hx Musculoskeletal Disorders: Yes Hx Arthritis: Yes - Gastrointestinal Hx Gastrointestinal Disorders: Yes Hx Constipation: Yes - Genitourinary/Gynecological Hx Genitourinary Disorders: No - Psychiatric Hx Psychophysiologic Disorder: No Hx Substance Use: No - Surgical History Other/Comment: HERNIA REPAIR - Anesthesia Hx Anesthesia Reactions: No Hx Malignant Hyperthermia: No - Suicidal Assessment Feels Threatened In Home Enviroment: No Family/Social History - Physician Review Nursing Documentation Reviewed: Yes Family/Social History: No Known Family HX Smoking Status: Never Smoked Hx Alcohol Use: No Hx Substance Use: No Hx Substance Use Treatment: No Allergies/Home Meds Allergies/Adverse Reactions: Allergies ibuprofen Allergy (Verified 04/22/19 11:40) ITCHING Penicillins Allergy (Verified 04/22/19 11:40) ANAPHYLAXIS Home Medications: Home Meds Medication Instructions Recorded Confirmed Albuterol Sulfate [Ventolin Hfa] 2 puff NEB Q6 PRN 04/22/19 04/22/19 Furosemide [Lasix] 20 mg PO DAILY 04/22/19 04/22/19 Valsartan [Diovan] 320 mg PO DAILY 04/22/19 04/22/19 Review of Systems - Physician Review All systems were reviewed & negative as marked: Yes - Review of Systems Constitutional: absent: Fevers Cardiovascular: absent: Chest Pain Physical Exam - Physical Exam Narrative Physical Exam (Text): Constitutional: No acute distress. Head: Normocephalic. Atraumatic. Eyes: PERRL. ENT: Moist mucous membranes. Neck: Supple. Cardiovascular: Regular rate. Chest: No tenderness. Respiratory: Clear to auscultation bilaterally. GI: Soft. Epigastric and RUQ tenderness with guarding. Nondistended. Back: No CVA tenderness. Musculoskeletal: No tenderness or swelling of extremities. Skin: No rash. Neurologic: Alert, no focal deficit. Vital Signs Reviewed: Yes Vital Signs Temp Pulse Resp BP Pulse Ox 04/22/19 11:37 98 F 87 18 172/87 H 97 Medical Decision Making ED Course and Treatment: 04/22/19 12:20 Impression: 78 year old female presents complaining of epigastric and RUQ abdominal pain that began approximately 10 hours ago. Plan: -- ABD & Pelvis CT w/ IV contrast -- Labs -- Morphine -- Urinalysis -- Urine Culture -- Reassess and disposition Prior Visits: Notes and results from previous visits were reviewed. Progress Notes: PROCEDURE: CT Abdomen and Pelvis with and without intravenous contrast Dictator : Mikhail Ritter MD Report Date : 04/22/2019 15:15:34 IMPRESSION: Multiple mildly dilated loops of small bowel suggestive of an early or partial small bowel obstruction with evidence of previous surgery with anastomotic sutures present. Bilateral inguinal hernias with new involvement of a loop of small bowel in the right inguinal hernia sac suggestive of an incarcerated hernia and possibly responsible for the patient's symptomology. 04/22/19 15:[address] Andino who is aware and agrees with the plan. Accepts patient into her service. 04/22/19 15:37 Case discussed with Surgeon Dr. Barker and surgical garment fitter who is aware and agrees with the plan. - Lab Interpretations I have reviewed the lab results: Yes - RAD Interpretation Radiology Orders: 04/22/19 12:15 ABD & PELVIS IV CONTRAST ONLY [CT] [employer] Teacher: Radiologist - Medication Orders Current Medication Orders: Discontinued Medications Morphine Sulfate (Morphine) 2 mg IVP STAT STA Stop: 04/22/19 12:16 - Scribe Statement The provider has reviewed the documentation as recorded by the Kay Catsaneda Provider Scribe Attestation: All medical record entries made by the Saludibenedina were at my direction and personally dictated by me. I have reviewed the chart and agree that the record accurately reflects my personal performance of the history, physical exam, medical decision making, and the department course for this patient. I have also personally directed, reviewed, and agree with the discharge instructions and disposition. Disposition/Present on Arrival - Present on Arrival Any Indicators Present on Arrival: No History of DVT/PE: No History of Uncontrolled Diabetes: No Urinary Catheter: No History of Decub. Ulcer: No History Surgical Site Infection Following: None - Disposition Have Diagnosis and Disposition been Completed?: Yes Diagnosis: SBO (small bowel obstruction), Incarcerated hernia Disposition: HOSPITALIZED Disposition Time: 15:16 Patient Plan: Admission Condition: GUARDED
[2019-04-22 12:33] LABS: URINE BILIRUBIN NEGATIVE (NEGATIVE); URINE BLOOD TRACE-LYSED (NEGATIVE); URINE GLUCOSE (UA) NEGATIVE (NEGATIVE); URINE LEUKOCYTE ESTERASE NEGATIVE Leu/uL (NEGATIVE); URINE PROTEIN NEGATIVE mg/dL (<30 mg/dL); URINE UROBILINOGEN 0.2 E.U./dL (<1 E.U./dL)
[2019-04-22 12:34] LABS: URINE APPEARANCE CLEAR (CLEAR); URINE COLOR YELLOW (YELLOW)
[2019-04-22 12:40] LABS: URINE WBC 0 - 2 /hpf (0-6)
[2019-04-22 12:41] LABS: URINE BACTERIA FEW /hpf
[2019-04-22 12:53] LABS: BASO # 0.04 K/mm3 (0.0-2.0); BASO % 0.4 % (0.0-3.0); EOS # 0.2 (0.0-0.7); EOS % 1.4 % (1.5-5.0); HEMOGLOBIN 11.8 g/dL (12.0-16.0); LYMPH # 1.8 (1.2-3.4); LYMPH % 16.6 % (22.0-35.0); MEAN CELL VOLUME 92.5 fl (80.0-105.0); MEAN CORPUSCULAR HEMOGLOBIN 29.5 pg (25.0-35.0); MEAN CORPUSCULAR HGB CONC 31.9 g/dl (31.0-37.0); MEAN PLATELET VOLUME 11.3 fl (7.0-11.0); MONO # 0.9 (0.1-0.6); MONO % 8.6 % (1.0-6.0); RED CELL DISTRIBUTION WIDTH 13.2 % (11.5-14.5); WHITE BLOOD COUNT 10.9 10^3/uL (4.5-11.0)
[2019-04-22] MEDS ORDERED: Morphine 4 mg/ml ISec IVP STA (13:36)
[2019-04-22] MEDS ORDERED: Iohexol 350 MG/100 ML VIAL ONE (13:47)
[2019-04-22 13:56] LABS: ALB/GLOB RATIO 1.4 (1.1-1.8); ALBUMIN 4.4 g/dL (3.0-4.8); ALT/SGPT 30 U/L (7-56); AST/SGOT 49 U/L (14-36); BLOOD UREA NITROGEN 17 mg/dL (7-21); CALCIUM 9.4 mg/dL (8.4-10.5); GFR NON-AFRICAN AMERICAN > 60; LIPASE 88 U/L (23-300)
--- NOTE | 2019-04-22 15:19 | CT ---
Date of service: 04/22/2019 PROCEDURE: CT Abdomen and Pelvis with and without intravenous contrast HISTORY: abd pain COMPARISON: 05/23/2018 TECHNIQUE: Axial images of the abdomen were obtained in the pre contrast, portal venous and delayed phases of enhancement. Coronal and sagittal reformats were generated. Contrast dose: Radiation dose: Total exam DLP = 738.29 mGy-cm. This CT exam was performed using one or more of the following dose reduction techniques: Automated exposure control, adjustment of the mA and/or kV according to patient size, and/or use of iterative reconstruction technique. FINDINGS: LOWER THORAX: Unremarkable. LIVER: Unremarkable. No gross lesion or ductal dilatation. GALLBLADDER AND BILE DUCTS: Cholecystectomy. PANCREAS: Unremarkable. No gross lesion or ductal dilatation. SPLEEN: Unremarkable. ADRENALS: Unremarkable. No mass. KIDNEYS AND URETERS: Bilateral peripelvic renal cysts. No hydronephrosis. No solid mass. VASCULATURE: Unremarkable. No aortic aneurysm. No aortic atherosclerotic calcification or mural plaque present. BOWEL: Multiple mildly dilated loops of small bowel suggestive of an early or partial small bowel obstruction with evidence of previous surgery with anastomotic sutures present. Bilateral inguinal hernias with new involvement of a loop of small bowel in the right inguinal hernia sac suggestive of an incarcerated hernia and possibly responsible for the patient's symptomology. Colonic diverticulosis. APPENDIX: Normal appendix. PERITONEUM: Unremarkable. No free fluid. No free air. LYMPH NODES: Unremarkable. No enlarged lymph nodes. BLADDER: Unremarkable. REPRODUCTIVE: Unremarkable. BONES: No acute fracture. OTHER FINDINGS: None. IMPRESSION: Multiple mildly dilated loops of small bowel suggestive of an early or partial small bowel obstruction with evidence of previous surgery with anastomotic sutures present. Bilateral inguinal hernias with new involvement of a loop of small bowel in the right inguinal hernia sac suggestive of an incarcerated hernia and possibly responsible for the patient's symptomology.
[2019-04-22] MEDS ORDERED: Albuterol-Ipratrop 3 mg / 0.5 (3 ml) UD IH PRN (18:12)
[2019-04-22] MEDS ORDERED: HYDROmorphone 2 mg/ml ISec IVP PRN ×2 (18:15→21:18)
--- NOTE | 2019-04-22 19:54 | CP.PCM.CON ---
History of Present Illness - History of Present Illness History of Present Illness: General Surgery Dr. Barker 78 y/o F w/ PMHx HTN, GERD, asthma, radiculopathy, presents to the ED c/o abd pain that started around 2am last night. Pt reports similar pain in the past, which was treated conservatively @[facility] [place]. Pain generalized though worse in upper abd. Pt denies exacerabating/relieving factors. Pt denies associated N/V prior to pain meds given in the ED. Pt had 1 episode of witnessed vomiting in the ED after receiving pain meds. Pt admits to firm BM last evening and multiple episodes of diarrhea this AM. Pt denies F/C, CP, SOB, dysuria, recent illness. PMHx: see above, arthritis Meds: reviewed in chart Allergy: Motrin, PCN - anaphylaxis PSHx: laparoscopic cholecystectomy, open appendectomy, open hysterectomy, incisional hernia repair SHx: denies tobacco, EtOH, drug use FHx: noncontributory Review of Systems - Review of Systems All systems: reviewed and no additional remarkable complaints except (see HPI) Past Patient History - Tetanus Immunizations Tetanus Immunization: Unknown - Past Social History Smoking Status: Never Smoked - CARDIAC Hx Cardiac Disorders: Yes Hx Hypertension: Yes - PULMONARY Hx Respiratory Disorders: Yes Hx Asthma: Yes - NEUROLOGICAL Hx Neurological Disorder: No - HEENT Hx HEENT Problems: No - RENAL Hx Chronic Kidney Disease: No - ENDOCRINE/METABOLIC Hx Endocrine Disorders: No - HEMATOLOGICAL/ONCOLOGICAL Hx Blood Disorders: No - INTEGUMENTARY Hx Dermatological Problems: No - MUSCULOSKELETAL/RHEUMATOLOGICAL Hx Musculoskeletal Disorders: Yes Hx Arthritis: Yes - GASTROINTESTINAL Hx Gastrointestinal Disorders: Yes Hx Constipation: Yes - GENITOURINARY/GYNECOLOGICAL Hx Genitourinary Disorders: No - PSYCHIATRIC Hx Psychophysiologic Disorder: No Hx Substance Use: No - SURGICAL HISTORY Other/Comment: HERNIA REPAIR - ANESTHESIA Hx Anesthesia Reactions: No Hx Malignant Hyperthermia: No Meds Allergies/Adverse Reactions: Allergies Allergy/AdvReac Type Severity Reaction Status Date / Time ibuprofen Allergy ITCHING Verified 04/22/19 11:40 Penicillins Allergy ANAPHYLAXIS Verified 04/22/19 11:40 - Medications Medications: Current Medications Albuterol/Ipratropium (Duoneb 3 Mg/0.5 Mg (3 Ml) Ud) 3 ml IH Q2H PRN PRN Reason: Shortness of Breath Albuterol/Ipratropium (Duoneb 3 Mg/0.5 Mg (3 Ml) Ud) 3 ml IH [id number] [place] Enoxaparin Sodium (Lovenox) 30 mg SC DAILY [place]; Protocol Hydromorphone HCl (Dilaudid) 1 mg IVP Q4H PRN PRN Reason: Pain, moderate (4-7) Dextrose/Sodium Chloride (Dextrose 5%/0.45% Ns 1000 Ml) 1,000 mls @ 100 mls/hr IV .Q10H [place] Metronidazole (Flagyl) 500 mg in 100 mls @ 100 mls/hr IVPB Q8 [place]; Protocol Levofloxacin/Dextrose (Levaquin 500mg) 500 mg in 100 mls @ 100 mls/hr IVPB DAILY [place]; Protocol Ondansetron HCl (Zofran Inj) 4 mg IVP Q6H PRN PRN Reason: Nausea/Vomiting Pantoprazole Sodium (Protonix Inj) 40 mg IVP DAILY [facility] Physical Exam - Constitutional Appears: Non-toxic, No Acute Distress - Head Exam Head Exam: NORMAL INSPECTION - Eye Exam Eye Exam: Normal appearance - ENT Exam ENT Exam: Mucous Membranes Moist - Respiratory Exam Respiratory Exam: NORMAL BREATHING PATTERN. absent: Accessory Muscle Use, Respiratory Distress - Cardiovascular Exam Cardiovascular Exam: absent: Bradycardia, Tachycardia - GI/Abdominal Exam GI & Abdominal Exam: Distended (mild), Hernia (righ inguinal: soft, NT, reducible), Soft, Tenderness (TTP LUQ/epigastric). absent: Firm, Guarding, R ebound - Extremities Exam Extremities exam: Positive for: normal inspection - Neurological Exam Neurological exam: Alert, Oriented x3 - Psychiatric Exam Psychiatric exam: Normal Affect, Normal Mood - Skin Skin Exam: Dry, Intact, Normal Color, Warm Results - Vital Signs Recent Vital Signs: Last Vital Signs Temp 97.8 F 04/22/19 18:40 Pulse 18 L 04/22/19 18:40 Resp 18 04/22/19 18:40 BP 140/82 04/22/19 18:40 Pulse Ox 98 04/22/19 18:40 - Labs Result Diagrams: 04/22/19 12:38 04/22/19 13:30 Labs: Laboratory Results - last 24 hr 04/22/19 04/22/19 04/22/19 12:00 12:38 13:30 WBC 10.9 RBC 4.00 Hgb 11.8 L Hct 37.0 MCV 92.5 MCH 29.5 MCHC 31.9 RDW 13.2 Plt Count 263 MPV 11.3 H Neut % (Auto) 73.0 H Lymph % (Auto) 16.6 L [place] % (Auto) 8.6 H Eos % (Auto) 1.4 L Baso % (Auto) 0.4 Lymph # (Auto) 1.8 [place] # (Auto) 0.9 H Eos # (Auto) 0.2 Baso # (Auto) 0.04 Absolute Neuts (auto) 7.97 H Sodium 139 Potassium 4.3 Chloride 102 Carbon Dioxide 26 Anion Gap 14 BUN 17 Creatinine 0.5 L Est GFR ( Amer) > 60 Est GFR (Non-Af Amer) > 60 Random Glucose 118 H Calcium 9.4 Total Bilirubin 0.6 AST 49 H D ALT 30 Alkaline Phosphatase 79 Total Protein 7.6 Albumin 4.4 Globulin 3.2 Albumin/Globulin Ratio 1.4 Lipase 88 Urine Color Yellow Urine Appearance Clear Urine pH 7.0 Ur Specific [place] 1.010 Urine Protein Negative Urine Glucose (UA) Negative Urine Ketones Negative Urine Blood Trace-lysed H Urine Nitrate Negative Urine Bilirubin Negative Urine Urobilinogen 0.2 Ur Leukocyte Esterase Negative Urine RBC 1 - 3 H Urine WBC 0 - 2 Ur Epithelial Cells 1 - 3 Urine Bacteria Few - Imaging and Cardiology CT scan - abdomen Status: Image reviewed by me, Report reviewed by me Chest x-ray Status: Pending Assessment & Plan - Assessment and Plan (Free Text) Assessment: 78 y/o F w/ partial SBO 2/2 adhesion vs right inguinal hernia Plan: - NPO, IVF - NGT on low, continuous wall sxn - non-narcotic pain management - anti-emetic - monitor bowel fxn - encourage OOB to chair/Amb - GI/DVT PPx Pt discussed w/ Dr. Lucero Chilel PGY3
[2019-04-22] MEDS: Dextrose 5%/0.45% NS 1,000 ML IV SCH (20:35)
[2019-04-22] MEDS: Albuterol-Ipratrop 3 mg / 0.5 (3 ml) UD IH SCH (20:43)
[2019-04-22 20:57] VITALS: BMI 32.5
[2019-04-22] MEDS ORDERED: Pneumococcal 23-Valent Vaccine IM ONE (20:57)
[2019-04-22] MEDS: metroNIDAZOLE IV 500 mg/100 ml 500 MG/100 ML BAG IVPB SCH (21:08)
--- NOTE | 2019-04-22 23:18 | HP ---
DATE OF EXAM: 04/22/2019 HISTORY OF PRESENT ILLNESS: The patient is 78 years old, known to me from office practice, came to emergency room because of increasing abdominal pain. Pain is radiating towards the back. She woke up earlier this morning because of this pain. Complained of intermittent constipation. Complained of feeling nauseous, did not vomit. No fever or chills. Does complain of constipation. PAST MEDICAL HISTORY: Significant for; 1. Asthma. 2. Hypertension. 3. Chronic back pain. 4. Severe bilateral knee osteoarthritis. 5. Generalized osteoarthritis. PAST SURGICAL HISTORY: Significant for; 1. Hysterectomy. 2. Appendectomy. 3. Cholecystectomy. 4. History of ventral hernia repair. ALLERGIES: SHE IS ALLERGIC TO PENICILLIN AND IBUPROFEN. SOCIAL HISTORY: She lives with her daughter. She denies smoking or drinking. MEDICATIONS AT HOME: She is on Percocet as needed. She is on Ventolin HFA. She is on Symbicort. She is on valsartan 320 mg daily, Lasix intermittently 20 mg daily. PHYSICAL EXAMINATION: GENERAL: She is anxious, complains of belly pain. VITAL SIGNS: She is afebrile, pulse 96, respirations 18, blood pressure 148/74. LUNGS: Bilateral fair airflow. No rhonchi or crackles. HEART: S1 and S2, audible. ABDOMEN: Soft, but palpable discomfort. NEUROLOGIC: Patient is awake and alert, able to communicate. EXTREMITIES: Bilateral leg, no edema. Bilateral severe knee osteoarthritis. LABORATORY DATA: WBC 10.9, hemoglobin 11.8, hematocrit 37, and platelets 263. Chemistry; sodium 139, potassium 4.3, chloride 102, CO2 of 26, BUN 17, creatinine 0.5, blood sugar 118. LFTs are within normal limits. AST 49 only. Urinalysis, wbc is 1.[address] scan of the abdomen and pelvis done, that shows multiple mildly dilated loops of small bowel suggestive of early partial small bowel obstruction with previous surgeries with anastomotic suture. Bilateral inguinal hernia with new involvement of a loop of small bowel in the right inguinal hernia sac suggestive of incarcerated hernia causing the patient's symptoms. ASSESSMENT: 1. Incarcerated inguinal hernia. 2. Partial small bowel obstruction. 3. Chronic obstructive pulmonary disease. 4. Hypertension. 5. Hyperlipidemia. 6. Severe bilateral knee osteoarthritis. PLAN: Currently, the patient is n.p.o. She is on IV fluids. Surgical consult by Dr. Barker has been requested. Started on IV Protonix. She is on analgesics as needed. Follow up her CBC and CMP in the a.m. Lindsey Andino MD
[2019-04-23] MEDS: Albuterol-Ipratrop 3 mg / 0.5 (3 ml) UD IH SCH ×4 (01:14→19:21)
[2019-04-23] MEDS: Dextrose 5%/0.45% NS 1,000 ML IV SCH ×2 (04:58→17:33)
[2019-04-23] MEDS: metroNIDAZOLE IV 500 mg/100 ml 500 MG/100 ML BAG IVPB SCH ×3 (05:48→22:03)
[2019-04-23 07:02] LABS: BASO # 0.02 K/mm3 (0.0-2.0); BASO % 0.2 % (0.0-3.0); EOS # 0.1 (0.0-0.7); EOS % 0.9 % (1.5-5.0); HEMOGLOBIN 11.3 g/dL (12.0-16.0); LYMPH # 1.6 (1.2-3.4); MEAN CELL VOLUME 93.2 fl (80.0-105.0); MEAN CORPUSCULAR HEMOGLOBIN 29.4 pg (25.0-35.0); MEAN CORPUSCULAR HGB CONC 31.5 g/dl (31.0-37.0); MEAN PLATELET VOLUME 11.3 fl (7.0-11.0); MONO # 1.2 (0.1-0.6); MONO % 12.2 % (1.0-6.0); RBC 3.85 10^6/uL (3.5-6.1); RED CELL DISTRIBUTION WIDTH 13.5 % (11.5-14.5); WHITE BLOOD COUNT 9.5 10^3/uL (4.5-11.0)
--- NOTE | 2019-04-23 07:46 | CP.PCM.PN ---
Subjective - Date & Time of Evaluation Date of Evaluation: 04/23/19 Time of Evaluation: 07:43 - Subjective Subjective: SURGERY NOTE FOR DR. RAY 78F seen and examined at bedside. Patient currently has NGT on suction, denies nausea, vomiting, fevers, chills, admits to mild abdominal pain. Objective - Vital Signs/Intake and Output Vital Signs (last 24 hours): Temp Pulse Resp BP Pulse Ox 98.3 F 89 18 153/73 H 95 04/22/19 22:17 04/22/19 22:17 04/22/19 22:17 04/22/19 22:17 04/22/19 22:17 Intake and Output: 04/23/19 04/23/19 06:59 18:59 Intake Total 300 Balance 300 - Medications Medications: Current Medications Albuterol/Ipratropium (Duoneb 3 Mg/0.5 Mg (3 Ml) Ud) 3 ml IH Q2H PRN PRN Reason: Shortness of Breath Albuterol/Ipratropium (Duoneb 3 Mg/0.5 Mg (3 Ml) Ud) 3 ml IH [id number] [facility] Last Admin: 04/23/19 01:14 Dose: 3 ml Enoxaparin Sodium (Lovenox) 30 mg SC DAILY [facility]; Protocol Hydromorphone HCl (Dilaudid) 1 mg IVP Q4H PRN PRN Reason: Pain, severe (8-10) Dextrose/Sodium Chloride (Dextrose 5%/0.45% Ns 1000 Ml) 1,000 mls @ 100 mls/hr IV .Q10H [facility] Last Admin: 04/23/19 04:58 Dose: 100 mls/hr Metronidazole (Flagyl) 500 mg in 100 mls @ 100 mls/hr IVPB Q8 [facility]; Protocol Last Admin: 04/23/19 05:48 Dose: 100 mls/hr Levofloxacin/Dextrose (Levaquin 500mg) 500 mg in 100 mls @ 100 mls/hr IVPB DAILY [facility]; Protocol Ketorolac Tromethamine (Toradol) 15 mg IVP Q6 PRN PRN Reason: Pain, moderate (4-7) Ondansetron HCl (Zofran Inj) 4 mg IVP Q6H PRN PRN Reason: Nausea/Vomiting Pantoprazole Sodium (Protonix Inj) 40 mg IVP DAILY [facility] - Labs Labs: 04/23/19 06:40 04/22/19 13:30 - Constitutional Appears: Non-toxic, No Acute Distress - Respiratory Exam Respiratory Exam: Clear to Ausculation Bilateral, NORMAL BREATHING PATTERN - Cardiovascular Exam Cardiovascular Exam: REGULAR RHYTHM, +S1, +S2 - GI/Abdominal Exam GI & Abdominal Exam: Soft. absent: Distended, Firm, Guarding, Rigid, Tenderness, Rebound Additional comments: NGT- approx 300cc in cannister bilious emesis - Extremities Exam Extremities Exam: absent: Pedal Edema, Tenderness - Neurological Exam Neurological Exam: Alert, Awake - Skin Skin Exam: Dry, Intact, Normal Color, Warm Assessment and Plan - Assessment and Plan (Free Text) Assessment: 78F with significant surgical history presents with abdominal pain from small bowel obstruction, likely from adhesions Plan: - NPO - IVF - Pain control - Anti-emetics - NGT in place, monitor output - Monitor for flatus/bowel movement - Serial abdominal exams Further recs discuss with Dr. Lucero Parekh, PGY3
[2019-04-23 08:03] LABS: ALB/GLOB RATIO 1.4 (1.1-1.8); ALBUMIN 3.9 g/dL (3.0-4.8); ALT/SGPT 385 U/L (7-56); AST/SGOT 566 U/L (14-36); BLOOD UREA NITROGEN 17 mg/dL (7-21); CALCIUM 8.5 mg/dL (8.4-10.5); GFR NON-AFRICAN AMERICAN > 60
[2019-04-23] MEDS: Enoxaparin 30 mg Syringe SC SCH (09:22)
--- NOTE | 2019-04-23 09:24 | RAD ---
Date of service: 04/22/2019 HISTORY: NGT placement COMPARISON: 06/22/2018 TECHNIQUE: 1 view obtained. FINDINGS: LUNGS: No active pulmonary disease. PLEURA: No significant pleural effusion identified, no pneumothorax apparent. CARDIOVASCULAR: No aortic atherosclerotic calcification present. Normal cardiac size. No pulmonary vascular congestion. OSSEOUS STRUCTURES: No significant abnormalities. VISUALIZED UPPER ABDOMEN: Normal. OTHER FINDINGS: None. IMPRESSION: The nasogastric tube is in satisfactory position
[2019-04-23] MEDS ORDERED: levoFLOXacin 500 mg in D5W 500 MG/100 ML BAG IVPB SCH (10:00)
[2019-04-23] MEDS ORDERED: cefTRIAXone 1 gm 1 GM/100 ML BAG IVPB SCH (10:00)
[2019-04-23] MEDS: Lidocaine 5% Patch TD SCH (12:50)
[2019-04-23] MEDS: HYDROmorphone 0.5 mg/0.5 ml ISec IVP PRN (17:32)
--- NOTE | 2019-04-23 23:44 | PN ---
DATE: 04/23/2019 SUBJECTIVE: The patient is 78 years old. Seen and examined. She states she feels a lot better since she has nasogastric tube placed. No vomiting. No desire to eat. No fever. No chills. PHYSICAL EXAMINATION: VITAL SIGNS: She is afebrile, pulse 74, respirations 18, blood pressure 146/82. LUNGS: Bilateral fair airflow. No rhonchi or crackle. HEART: S1 and S2 audible. ABDOMEN: Soft. Slight palpable periumbilical discomfort. NEUROLOGIC: She is awake and alert, able to communicate. EXTREMITIES: Bilateral legs, no edema. Complains of bilateral knee pain. LABORATORY EXAMINATION: WBC 9.5, hemoglobin 11, hematocrit 35.9, platelets 254. Chemistry: Sodium 136, potassium 4.1, chloride 101, CO2 of 28, BUN 17, creatinine 0.8, and glucose 111. AST 566, ALT 385. Urine culture seems to be contaminated. X-ray of chest is negative. ASSESSMENT AND PLAN: 1. Partial small bowel obstruction. 2. Abnormal liver function tests. 3. History of hypertension. 4. Chronic obstructive pulmonary disease. 5. Incarcerated ventral hernia. Seems to be comfortable now. The patient does not want to have any surgical intervention done. She has multiple surgeries for in the past, and she was told by a surgeon not to get operated next time; however, she is being treated conservatively. She is on deep venous thrombosis prophylaxis. She is on intravenous antibiotics. The patient has abnormal liver function tests abdominal sonogram. We will follow up her complete blood count and comprehensive metabolic panel in the morning. Lindsey Andino MD
[2019-04-24] MEDS: Albuterol-Ipratrop 3 mg / 0.5 (3 ml) UD IH SCH ×4 (01:23→21:00)
--- NOTE | 2019-04-24 03:07 | CP.PCM.PN ---
Subjective - Date & Time of Evaluation Date of Evaluation: 04/24/19 Time of Evaluation: 03:04 - Subjective Subjective: SURGERY NOTE DR. RAY 78F seen and examined at bedside. Patient states abdominal pain resolved, denies nausea or vomiting, admits to flatus and having a bowel movement yesterday. Objective - Vital Signs/Intake and Output Vital Signs (last 24 hours): Temp Pulse Resp BP Pulse Ox 98.5 F 97 H 18 163/70 H 96 04/23/19 22:00 04/23/19 22:00 04/23/19 22:00 04/23/19 22:00 04/23/19 22:00 - Medications Medications: Current Medications Albuterol/Ipratropium (Duoneb 3 Mg/0.5 Mg (3 Ml) Ud) 3 ml IH Q2H PRN PRN Reason: Shortness of Breath Albuterol/Ipratropium (Duoneb 3 Mg/0.5 Mg (3 Ml) Ud) 3 ml IH [id number] [facility] Last Admin: 04/24/19 01:23 Dose: Not Given Enoxaparin Sodium (Lovenox) 30 mg SC DAILY [facility]; Protocol Last Admin: 04/23/19 09:22 Dose: 30 mg Famotidine (Pepcid) 20 mg IVP DAILY [facility] Hydromorphone HCl (Dilaudid) 0.5 mg IVP Q4H PRN PRN Reason: Pain, severe (8-10) Last Admin: 04/23/19 17:32 Dose: 0.5 mg Dextrose/Sodium Chloride (Dextrose 5%/0.45% Ns 1000 Ml) 1,000 mls @ 100 mls/hr IV .Q10H [facility] Last Admin: 04/23/19 17:33 Dose: 100 mls/hr Metronidazole (Flagyl) 500 mg in 100 mls @ 100 mls/hr IVPB Q8 [facility]; Protocol Last Admin: 04/23/19 22:03 Dose: 100 mls/hr Levofloxacin/Dextrose (Levaquin 500mg) 500 mg in 100 mls @ 100 mls/hr IVPB DAILY [facility]; Protocol Last Admin: 04/23/19 09:21 Dose: 100 mls/hr Ketorolac Tromethamine (Toradol) 15 mg IVP Q6 PRN PRN Reason: Pain, moderate (4-7) Last Admin: 04/23/19 12:51 Dose: 15 mg Lidocaine (Lidoderm) 1 ea TD DAILY [facility] Last Admin: 04/23/19 12:50 Dose: 1 ea Ondansetron HCl (Zofran Inj) 4 mg IVP Q6H PRN PRN Reason: Nausea/Vomiting Last Admin: 04/23/19 20:40 Dose: 4 mg - Labs Labs: 04/23/19 06:40 04/23/19 06:40 - Constitutional Appears: Non-toxic, No Acute Distress - Respiratory Exam Respiratory Exam: Clear to Ausculation Bilateral, NORMAL BREATHING PATTERN - Cardiovascular Exam Cardiovascular Exam: REGULAR RHYTHM, +S1, +S2 - GI/Abdominal Exam GI & Abdominal Exam: Soft. absent: Distended, Firm, Guarding, Rigid, Tenderness, Rebound - Extremities Exam Extremities Exam: absent: Pedal Edema, Tenderness - Neurological Exam Neurological Exam: Alert, Awake - Skin Skin Exam: Dry, Intact, Normal Color, Warm Assessment and Plan - Assessment and Plan (Free Text) Assessment: 78F with resolved small bowel obstruction Plan: - advance diet to clears - monitor for further flatus and bowel movement - out of bed/ ambulating - continue to advance diet as tolerated Further recs discuss with Dr. Lucero Parekh, PGY3
[2019-04-24] MEDS: HYDROmorphone 0.5 mg/0.5 ml ISec IVP PRN (06:17)
[2019-04-24] MEDS: metroNIDAZOLE IV 500 mg/100 ml 500 MG/100 ML BAG IVPB SCH (06:49)
[2019-04-24] MEDS ORDERED: Dextrose 5%/0.45% NS 1,000 ML IV SCH (07:42)
[2019-04-24 07:59] LABS: BASO # 0.02 K/mm3 (0.0-2.0); BASO % 0.2 % (0.0-3.0); EOS # 0.4 (0.0-0.7); HEMOGLOBIN 10.4 g/dL (12.0-16.0); LYMPH # 1.3 (1.2-3.4); LYMPH % 13.1 % (22.0-35.0); MEAN CELL VOLUME 93.9 fl (80.0-105.0); MEAN CORPUSCULAR HEMOGLOBIN 28.8 pg (25.0-35.0); MEAN CORPUSCULAR HGB CONC 30.7 g/dl (31.0-37.0); MEAN PLATELET VOLUME 11.3 fl (7.0-11.0); MONO # 1.2 (0.1-0.6); MONO % 12.5 % (1.0-6.0); RBC 3.61 10^6/uL (3.5-6.1); RED CELL DISTRIBUTION WIDTH 13.5 % (11.5-14.5); WHITE BLOOD COUNT 9.7 10^3/uL (4.5-11.0)
[2019-04-24 08:22] LABS: ALB/GLOB RATIO 1.2 (1.1-1.8); ALBUMIN 3.4 g/dL (3.0-4.8); ALT/SGPT 207 U/L (7-56); AST/SGOT 124 U/L (14-36); BLOOD UREA NITROGEN 7 mg/dL (7-21); CALCIUM 8.5 mg/dL (8.4-10.5); GFR NON-AFRICAN AMERICAN > 60
[2019-04-24] MEDS: Enoxaparin 30 mg Syringe SC SCH (09:39)
[2019-04-24] MEDS: Lidocaine 5% Patch TD SCH (09:40)
--- NOTE | 2019-04-24 10:38 | US ---
Date of service: 04/23/2019 HISTORY: abnormal LFT COMPARISON: None. TECHNIQUE: Sonographic evaluation of the abdomen. FINDINGS: LIVER: Measures 14.7 cm. Increased echogenicity of the liver parenchyma. No mass. No intrahepatic bile duct dilatation. GALLBLADDER: Prior cholecystectomy. COMMON BILE DUCT: Measures 9 mm. No stones. PANCREAS: Unremarkable as visualized. No mass. No ductal dilatation. RIGHT KIDNEY: Measures 9.7 x 4.5 x 5.4cm. Normal echogenicity. No calculus, mass, or hydronephrosis. LEFT KIDNEY: Measures 10.4 x 5.5 x 5.4cm. Normal echogenicity. Midpole cyst measuring 1.4 x 1.3 x 1.3 cm. No calculus, mass, or hydronephrosis. SPLEEN: Normal in size and contour. No mass. AORTA: No aneurysmal dilatation. IVC: Unremarkable. OTHER FINDINGS: None. IMPRESSION: Hepatic steatosis. Prior cholecystectomy. Left renal 1.4 cm cyst.
--- NOTE | 2019-04-24 16:55 | PN ---
DATE: 04/24/2019 SUBJECTIVE: The patient is 78-year-old. Seen and examined. Nasogastric tube removed, doing very well and tolerating clear liquids. No more nausea or vomiting. Abdominal pain has almost gone. PHYSICAL EXAMINATION: VITAL SIGNS: The patient is afebrile, pulse 91, respirations 18, and blood pressure 170/84. LUNGS: Bilateral fair airflow. No rhonchi or crackle. HEART S1 and S2 audible. ABDOMEN: Soft, nontender. No rebound. No guarding. NEUROLOGICAL: The patient is awake and alert. Able to communicate. LABORATORY DATA: WBC 9.7, hemoglobin 10.4, hematocrit 33.9, and platelets 201. Chemistry: Sodium 138, potassium 3.5, chloride 104, CO2 of 29, BUN 7, creatinine 0.5, and blood sugar 153. AST 124, ALT 207, and alk phos is 112. ASSESSMENT: 1. Status post partial small bowel obstruction. 2. History of hypertension. 3. History of chronic obstructive pulmonary disease. 4. Abnormal liver function tests, that has resolved overnight. Abdominal sonogram shows hepatic steatosis and status post cholecystectomy. 5. Bilateral severe osteoarthritis. PLAN: The patient's nasogastric tube is removed. She is on IV fluids. She will be given losartan and we will start her on liquid diet and advance as tolerated. Once cleared by surgery team, will be discharged. Lindsey Andino MD
[2019-04-24] MEDS ORDERED: oxyCODONE 5 mg Immediate Release Tab PO STA (23:15)
[2019-04-25] MEDS: Albuterol-Ipratrop 3 mg / 0.5 (3 ml) UD IH SCH ×2 (02:33→07:52)
--- NOTE | 2019-04-25 06:16 | CP.PCM.PN ---
Subjective - Date & Time of Evaluation Date of Evaluation: 04/25/19 Time of Evaluation: 06:14 - Subjective Subjective: General Surgery: Dr Barker Pt S&eSharon FITCH. Tolerating regular diet. Having BMs. No current complaints. Objective - Vital Signs/Intake and Output Vital Signs (last 24 hours): Temp Pulse Resp BP Pulse Ox 98.1 F 98 H 20 145/60 97 04/24/19 22:00 04/24/19 22:00 04/24/19 22:00 04/24/19 22:00 04/24/19 22:00 Intake and Output: 04/24/19 04/25/19 18:59 06:59 Intake Total 620 Balance 620 - Medications Medications: Current Medications Albuterol/Ipratropium (Duoneb 3 Mg/0.5 Mg (3 Ml) Ud) 3 ml IH Q2H PRN PRN Reason: Shortness of Breath Albuterol/Ipratropium (Duoneb 3 Mg/0.5 Mg (3 Ml) Ud) 3 ml IH [id number] [facility] Last Admin: 04/25/19 02:33 Dose: Not Given Enoxaparin Sodium (Lovenox) 30 mg SC DAILY [facility]; Protocol Last Admin: 04/24/19 09:39 Dose: 30 mg Famotidine (Pepcid) 20 mg IVP DAILY [facility] Last Admin: 04/24/19 09:39 Dose: 20 mg Lidocaine (Lidoderm) 1 ea TD DAILY [facility] Last Admin: 04/24/19 09:40 Dose: 1 ea Losartan Potassium (Cozaar) 100 mg PO DAILY [facility] Last Admin: 04/24/19 12:09 Dose: 100 mg Montelukast Sodium (Singulair) 10 mg PO DAILY [facility] Last Admin: 04/24/19 09:40 Dose: 10 mg Ondansetron HCl (Zofran Inj) 4 mg IVP Q6H PRN PRN Reason: Nausea/Vomiting Last Admin: 04/24/19 10:48 Dose: 4 mg Oxybutynin Chloride (Ditropan Tab) 5 mg PO BID [facility] Last Admin: 04/24/19 18:43 Dose: 5 mg - Labs Labs: 04/24/19 07:00 04/24/19 07:00 - Constitutional Appears: Non-toxic, No Acute Distress - ENT Exam ENT Exam: Mucous Membranes Moist - Respiratory Exam Respiratory Exam: absent: Accessory Muscle Use, Respiratory Distress - Cardiovascular Exam Cardiovascular Exam: REGULAR RHYTHM - GI/Abdominal Exam GI & Abdominal Exam: Soft, Hernia (RIH - reducible). absent: Distended, Tenderness - Neurological Exam Neurological Exam: Alert, Awake, Oriented x3 Assessment and Plan - Assessment and Plan (Free Text) Assessment: 78F w/ SBO; resolved Plan: clear for discharge from surgery can follow up in outpatient clinic for elective inguinal hernia repair if desired d/w Dr Lucero Sena, PGY4
[2019-04-25 08:21] VITALS: BP 118/69; PULSE 88; RESP 17; TEMP 98.5; O2SAT 95
[2019-04-25] MEDS: Lidocaine 5% Patch TD SCH (09:25)
[2019-04-25] MEDS: Enoxaparin 30 mg Syringe SC SCH (09:25)
--- NOTE | 2019-04-25 18:43 | DS ---
HISTORY OF PRESENT ILLNESS: This is an 78-year-old female, who had come to the hospital because of partial small bowel obstruction. The patient was having abdominal pain. She was seen by Surgery and was placed on clear liquids. She had improvement in her symptoms with conservative management. The patient is currently improved. She is able to tolerate her diet. She is able to ambulate. She has no complaints of any abdominal pain. The patient is going to be discharged home today. PHYSICAL EXAMINATION: VITAL SIGNS: Temperature is 98.5, pulse of 88, blood pressure is 118/69, respirations 17, and O2 saturation 95%. GENERAL: The patient is lying in bed, flat, comfortable. HEENT: No oral lesion. Anicteric sclerae. Moist mucosa. NECK: No JVD, adenopathy, or thyromegaly. CARDIOVASCULAR: S1 and S2, regular. No murmurs, rubs, or gallops. LUNGS: Clear to auscultation bilaterally. No wheeze, rales, or rhonchi. ABDOMEN: Bowel sounds are positive, soft, nontender and nondistended. EXTREMITIES: No cyanosis, clubbing, or edema. ASSESSMENT: 1. Partial small bowel obstruction. 2. Hypertension. 3. Chronic obstructive pulmonary disease. 4. Hepatic steatosis. 5. Osteoarthritis. PLAN: The patient is currently on losartan for hypertension. The patient is on oxybutynin for the urinary incontinence. The patient is on Lovenox for DVT prophylaxis. She is on oxycodone for pain. She is on Zofran as needed. She is on a regular diet. The patient has been cleared by Surgery to go home. The patient is going to follow up as an outpatient for elective inguinal hernia repair by Dr. Barker. CONDITION: Stable. ACTIVITY: Increased as tolerated. FOLLOWUP: 1. Followup with primary doctor in one to two weeks. 2. Followup with Dr. Barker in two to three weeks. Chris Chaves MD
== END 2019-04-25 12:13 | disposition home or self-care (01) | DRG 394 ==
LOC: ED 11:31 → ERH 15:45 → 5RSO 17:49
PROVIDERS: ADMIT Internal Medicine; ATTEND Internal Medicine
PROC: 0D9670Z Drainage of Stomach with Drainage Device, Via Natural or Artificial Opening (ICD-10-PCS; principal; 2019-04-23)
DX: K40.00 Bilateral inguinal hernia, with obstruction, without gangrene, not specified as recurrent (principal); K56.51 Intestinal adhesions [bands], with partial obstruction; I10 Essential (primary) hypertension; K57.30 Diverticulosis of large intestine without perforation or abscess without bleeding; J44.9 Chronic obstructive pulmonary disease, unspecified; M17.0 Bilateral primary osteoarthritis of knee; K21.9 Gastro-esophageal reflux disease without esophagitis; K76.0 Fatty (change of) liver, not elsewhere classified; M54.10 Radiculopathy, site unspecified; R32 Unspecified urinary incontinence; E78.5 Hyperlipidemia, unspecified; R94.5 Abnormal results of liver function studies; Z88.8 Allergy status to other drugs, medicaments and biological substances; Z88.0 Allergy status to penicillin